=== PATIENT | female | born 1940 | race Caucasian/White ===

== ENCOUNTER → 2016-03-18 | Outpatient (CLI) | payer OTHER ==
[~2016-03-18] VITALS: Ht 154.9 cm; Wt 31.0 kg
[~2016-03-18] MED LIST: BUSPIRONE HCL10 MG PO; BUTRANS1 EAC1 TD; CENTRUM SILVER1 EAC4 PO; CLONAZEPAM 1 MG1 M1 PO; CYMBALTA30 MG PO; DICLOFENAC SODI75 MG PO; FAMOTIDINE 20 M20 MG PO; GENTLE LAXATIVE5 M1 PO; LEVOTHYROXIN0.088 MG PO; LEVOTHYROXINE0.05 MG PO; LINZESS145 MCG PO; LISINOPRIL20 MG PO; MECLIZINE HCL25 MG PO; MEGACE ES625 MG/5 M PO; METHADONE HCL5 MG PO; MIRALAX17 G1 PO; MOVANTIK12.5 MG PO; ONDANSETRON HCL4 M2; OXYCODONE-ACET1 EACH PO; PERCOCET 7.5-31 EACH PO; PRILOSEC20 MG PO; PROTONIX40 M2 PO; RELISTOR8 MG/0.4 M SQ; SENOKOT-S1 TA1 PO; TIZANIDINE HCL 22 M1 PO; TUMS PO; VOLTAREN GEL 1100 G2 TOP; ZIPSOR25 MG PO
--- NOTE | ~2016-03-18 | HPC ---
[facility] [address] [place] [address] PAIN MANAGEMENT CONSULTATION Name: TIERRASCARLET SJ Room #: REG Jose Velasco.#: [id number] Admission: 03/18/16 Attend Phys: Andres Otero MD Discharge: Date of : 39 Report #: [id number] THIS REPORT FOR: //name// CC: Laurent Garnica DATE OF SERVICE: 03/18/2016 Followup visit for chronic intractable pelvic pain. The patient returns to clinic today with her daughter. She continues to complain of pain in her pelvis and in her anterior thighs bilaterally. She has fracture deformities involving the pubic ramus on the left that are age undetermined. These x-rays were performed a year ago, but she still complains of pain in that location. She also complains today that she has some clicking trigger fingers in the right hand. This has made it more difficult for her to use her pen and to write and she complains of discomfort. 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 Pain is an 8/10 with her current medicines. She is tolerating her methadone reasonably well. Constipation has been an issue all long and we have used MiraLax ____ good effect. She is on other centrally acting medications, which contribute. She is chronically malnourished. There has been little change in her weight since her last visit. Her mental status is stable. She shows no signs of overmedication. She is chronically depressed. PHYSICAL EXAMINATION: VITAL SIGNS: Blood pressure 144/64, heart rate 55, BMI is 12.9. MUSCULOSKELETAL: Examination of the hands reveals minimal muscle mass throughout the interossei and dislocation of the proximal interphalangeal joints throughout the right hand. She is able to make a fist with that hand, there is no swelling or inflammation of the joints noted. Left hand reveals subluxation of the metacarpophalangeal joint of the thumb. She has tenderness along the pubic rami. Tenderness also along the quadriceps muscles bilaterally. She has very minimal muscle mass as would be expected by her BMI. IMPRESSION: 1. 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 [facility] [address] [place] [address] PAIN MANAGEMENT CONSULTATION Name: SCARLET MAYORGA SJ Room #: REG [facility]..#: [id number] Admission: 03/18/16 Attend Phys: Andres Otero MD Discharge: Date of : 39 Report #: [id number] 2. Chronic pelvic pain with distant pubic rami fractures, which remain tender. 3. Malnourished, debility. 4. 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 5. Management of high risk medication. RECOMMENDATIONS: 1. I do not think there is much we can do about her hands other than she can continue to try and use some of what I recommended that she use some silly putty to try and strengthen the interosseous muscles and muscles intrinsic in the hand to see if this will provide better functionality. 2. I have renewed her methadone at 5 mg t.i.d. under terms of our agreement with important instructions on safeguarding. 3. Follow up in the pain clinic in 3 months. 4. Encouraged nutrition again, but sure I am ____. <ELECTRONICALLY SIGNED> By: Andres Otero MD 04/18/16 1130 1624 0027 Andres Otero MD /nt
[2016-03-18 15:18] VITALS: BP 140/64
== END | disposition home or self-care (01) ==
LOC: PAIN 02-19 13:56
DX: M54.16 Radiculopathy, lumbar region (principal); G89.29 Other chronic pain; E46 Unspecified protein-calorie malnutrition; M12.842 Other specific arthropathies, not elsewhere classified, left hand; M12.841 Other specific arthropathies, not elsewhere classified, right hand; Z87.81 Personal history of (healed) traumatic fracture; Z87.891 Personal history of nicotine dependence

== ENCOUNTER → 2016-06-22 | Outpatient (CLI) | payer OTHER ==
[~2016-06-22] VITALS: Ht 154.9 cm; Wt 30.1 kg
[~2016-06-22] MED LIST changes: +GABAPENTIN100 MG PO; +OXYCODONE-APAP1 EAC6 PO
--- NOTE | ~2016-06-22 | HPC ---
[facility] [place] [address] [address] [place] [address] PAIN MANAGEMENT CONSULTATION Name: SCARLET MAYORGA SJ Room #: REG GHAZALA Velasco.#: [id number] Admission: 06/22/16 Attend Phys: Andres Otero MD Discharge: Date of : 39 Report #: [id number] THIS REPORT FOR: //name// CC: Laurent Garnica DATE OF SERVICE: 06/22/2016 DATE OF REGISTRATION: 06/22/2016 Followup visit for management of high risk medications and chronic intractable pelvic pain. The patient is here today with her daughter. She has had several fractures of her pelvis and I provided with medication which has been helpful. She is becoming tolerant to the effects of methadone. We had a long talk today about opioid rotation. I am going to take her down off methadone at her current dose of [address] her on 7.5 mg of oxycodone 3 times a day and add gabapentin. She has some radicular features into the top of her right leg. I do not have any recent x-rays of her spine. I do have x-rays; however, that demonstrates pubic rami fractures that are old. The patient is longstanding anorexic. I will say that in the years that I have known her, which is now stretching into 4 years, her body habitus has not changed much. Her BMI is 12.6. I am sure she eats like a bird and encouraged her in the past to eat more. Her daughter says she does take quite a bit of protein. PHYSICAL EXAMINATION: Very frail appearing 76-year-old female with a BMI of 12.6. Her blood pressure is 134/65, heart rate 65, respirations 16. Her affect is mildly depressed. She moves from sitting to standing position independently, walks with a slow gait. She has limited range of motion of the spine. No pain with the hip articulation with internal and external rotation. Straight leg raising reproduces mild anterior thigh pain which is worse on the right than left. IMPRESSION: 1. Chronic intractable back pain, now with some evidence of low radiculopathy. 2. Chronic malnourishment with debility. 3. Management of high risk medication. PLAN: 1. Discontinue methadone, begin oxycodone 7.[address] [address] PAIN MANAGEMENT CONSULTATION Name: TIERRASCARLET SJ Room #: REG [facility] Rod.#: [id number] Admission: 06/22/16 Attend Phys: Andres Otero MD Discharge: Date of : 39 Report #: [id number] 2. Trial of 100 mg gabapentin per day. Side effects discussed. 3. Follow up in 3 months. By: 1607 [id number] Andres Otero MD /nt
[2016-06-22 15:33] VITALS: BP 134/65
== END | disposition home or self-care (01) ==
LOC: PAIN 06-08 06:51
DX: G89.29 Other chronic pain (principal); R53.81 Other malaise; I10 Essential (primary) hypertension; E46 Unspecified protein-calorie malnutrition; Z87.891 Personal history of nicotine dependence

== ENCOUNTER → 2016-08-17 | Outpatient (CLI) | payer OTHER ==
--- NOTE | ~2016-08-17 | HPC ---
[facility] [address] [address] [address] PAIN MANAGEMENT CONSULTATION Name: SCARLET MAYORGA SJ Room #: REG [facility] Rod.#: [id number] Admission: 08/17/16 Attend Phys: Andres Otero MD Discharge: Date of : 39 Report #: [id number] THIS REPORT FOR: //name// CC: Laurent Cummings DO Andres Otero DATE OF SERVICE: 08/17/2016 DATE OF REGISTRATION: 08/17/2016. REASON FOR VISIT: Followup visit for chronic pain. SUBJECTIVE: The patient presents today with her daughter. She has fallen again and went to see emergency clinic. Apparently, they took x-ray and saw a pelvic fracture. I am uncertain whether this is a new fracture or her old one. The pain today is opposite side from her previous fracture, which was on the left. She is so frail and debilitated that any fall I would be afraid would shatter her like a porcelain tea cup. She weighs only 70 pounds and her BMI is less than 13. Despite this frailty, her mind is alert and oriented. She scores her pain as an 8/10. PHYSICAL EXAMINATION: VITAL SIGNS: Blood pressure 119/48, heart rate 64, respirations 16, weight is 70 pounds, BMI not listed, but I believe is around 12-13. This is chronic. MUSCULOSKELETAL: She has ability to move from a sitting to standing position and take a couple of steps with stabilization. She is a fall risk. She has minimal pain in her legs. ABDOMEN: She has tenderness in her abdomen due to constipation. HIP: She has localized pain overlying the right ischium. IMPRESSION: 1. Chronic intractable pain with history of pelvic fracture, possibly now with new fracture. 2. Malnourishment with debility. 3. Management of high risk medication. She has done well with the methadone currently at 15 mg a day. It is amazing that someone so small will be able to tolerate the medicine. Urine drug screens have been appropriate so she is taking the medicine. [facility] [address] [place] [address] PAIN MANAGEMENT CONSULTATION Name: SCARLET MAYORGA [facility] Room #: [facility] [id number] Admission: 08/17/16 Attend Phys: Andres Otero MD Discharge: Date of : 39 Report #: [id number] RECOMMENDATION: Follow up in the pain clinic in 1-3 months. Medications are provided. By: 1850 34 Andres Otero MD /nt
[2016-08-17 14:36] VITALS: BP 119/48
== END | disposition home or self-care (01) ==
LOC: PAIN 07-30 07:21
DX: S32.89XA Fracture of other parts of pelvis, initial encounter for closed fracture (principal); E46 Unspecified protein-calorie malnutrition; F11.20 Opioid dependence, uncomplicated; Z87.891 Personal history of nicotine dependence; X58.XXXA Exposure to other specified factors, initial encounter; Y93.89 Activity, other specified; Y92.89 Other specified places as the place of occurrence of the external cause; Y99.8 Other external cause status

== ENCOUNTER → 2016-11-16 | Outpatient (CLI) | payer OTHER ==
[~2016-11-16] VITALS: Ht 152.4 cm; Wt 30.5 kg
[~2016-11-16] MED LIST changes: +RABEPRAZOLE SOD20 MG PO
--- NOTE | ~2016-11-16 | HPC ---
[facility] [address] [address] [address] PAIN MANAGEMENT CONSULTATION Name: SCARLET MAYORGA SJ Room #: REG CLJose Velasco.#: [id number] Admission: 11/16/16 Attend Phys: Andres Otero MD Discharge: Date of : 39 Report #: [id number] THIS REPORT FOR: //name// CC: Laurent Cummings DO Andres Otero DATE OF SERVICE: 11/16/2016 REASON FOR VISIT: Followup visit for chronic pain. HISTORY OF PRESENT ILLNESS: A very frail patient returns to pain clinic today with her daughter. Her pain is 9. She describes several pain generators including her back and her thighs. She has hip throughout her pelvis where she has had pelvic insufficiency fractures. Pain is worse with standing and weightbearing and is also worse at night. She complains of a lot of stress and anxiety. It is generalized anxiety. She cannot really put her finger on it. She is on medication for this. Methadone has been helpful for her pain, but I am reluctant to increase her dose given her frailty and the polypharmacy that she is already taking. MEDICATIONS: Rabeprazole, methadone 5 mg t.i.d., meclizine, lisinopril, Relistor, Voltaren gel, levothyroxine, tizanidine, Cymbalta, ondansetron, clonazepam 1 mg 4 times daily for anxiety, famotidine and she was started on diclofenac sodium in addition to the naproxen that she takes. I have cautioned her about her nonsteroidal anti-inflammatory drug use and this may be of her abdominal pain. PHYSICAL EXAMINATION: GENERAL: She is very frail appearing. VITAL SIGNS: Blood pressure 122/50, heart rate 51, respirations 12 and oxygen saturation is 98. Her BMI is 13.1. This is consistent with previous visits dating back several years. She was 12.6 one year ago, so she is actually gained a bit of weight (!). MUSCULOSKELETAL: She has diffuse pain throughout the upper back, shoulders and arms with myofascial tenderness as well as joint pain. She has abdominal discomfort. She uses a walker and is able to ambulate but is at fall risk with standing and walking. Pain throughout the pelvis where she has insufficiency fractures, pain with internal and external rotation of the hips. IMPRESSION: 1. Chronic intractable pain, multiple pain generators including osteoarthritis, history of pelvic fractures. 2. Malnourishment with debility, chronic. [address] [address] PAIN MANAGEMENT CONSULTATION Name: SCARLET MAYORGA SJ Room #: REG CLI Jorge#: [id number] Admission: 11/16/16 Attend Phys: Andres Otero MD Discharge: Date of : 39 Report #: [id number] 3. Management of high risk medications. PLAN: I will renew her methadone for her. For her anxiety, I spent 10 minutes with her today discussing nonpharmacologic measures and instructing her in mindfulness meditation. I have also recommended Pablo Turner's book "10% happier." This is easy to read a thought of biography written about his use of mindfulness, meditation and I have given some instructions at the end of the book. Both, the patient and her daughter were familiar with Pablo Turner and the book and to look forward to reading this. I think it would be an excellent entry for her to this technique. A followup visit is scheduled in 3 months. By: 1733 [id number] Andres Otero MD /nt
[2016-11-16 14:46] VITALS: BP 122/50
== END | disposition home or self-care (01) ==
LOC: PAIN 07:28
DX: G89.29 Other chronic pain (principal); E46 Unspecified protein-calorie malnutrition; F41.8 Other specified anxiety disorders; Z98.890 Other specified postprocedural states; Z79.891 Long term (current) use of opiate analgesic; Z87.891 Personal history of nicotine dependence

== ENCOUNTER → 2017-05-24 | Outpatient (CLI) | payer OTHER ==
[~2017-05-24] VITALS: Ht 154.9 cm; Wt 32.8 kg
[~2017-05-24] MED LIST changes: +ASPIRIN81 M2 PO; +IRON325 PO; -LEVOTHYROXIN0.088 MG PO; +RELISTOR150 MG PO; +SYNTHROID50 MCG PO
--- NOTE | ~2017-05-24 | HPC ---
[facility] [address] [address] PAIN MANAGEMENT CONSULTATION Name: MILADY MAYORGA SJ Room #: REG Jose Velasco.#: [id number] Admission: 05/24/17 Attend Phys: Andres Otero MD Discharge: Date of : 39 Report #: [id number] THIS REPORT FOR: //name// CC: HU Otero DATE OF SERVICE: 05/24/2017 Milady returns to pain clinic today in followup. I am amazed to see that she has had a shoulder replacement. She has done exceptionally well and has healed very well. They examined her scar. She has significant improvement in her shoulder pain as a result of the surgery. Congratulations to do that for her rehabilitation [place] for the skilled encouraged to perform the surgery successfully. surgery. Overall, she continues to complain of pain; however, in her back and her thighs and hip and pelvis. The use of her arm has, however, improved her ability to provide for many of her simple hygiene tasks and activities of daily living. Her current daily dose of medication is methadone 5 mg 3 times a day and diclofenac leg. They would like to transition to oral medication. There are certainly risks there, but I would agreed to provide her with a prescription for 75 mg tablets once daily. She has used these before. No additional nonsteroidal anti-inflammatory drugs should be taken. PQRS: Review shows patient with significant osteoarthritis, previous shoulder replacement with Dr. Palacio. BMI is 13.7. PHYSICAL EXAMINATION: Blood pressure 113/77. She is a fall risk, has following the last 3 months and uses a walker. She is on no blood thinners. She has an opioid agreement, which was resigned in 10/21/2015 and is at low risk for addiction it. She understands the responsibilities. Her daughter is with her today. RECOMMENDATIONS: Drug testing has been performed periodically and we will continue to keep an eye on those medications for her. She is grateful for the pain relief provided by the methadone and this has helped her remain relatively independent despite her significant debility from malnourishment and low BMI. Follow up in 3 months. <ELECTRONICALLY SIGNED> By: Andres Otero MD 06/14/17 1408 1204 1422 Andres Otero MD /nt
[2017-05-24 14:29] VITALS: BP 113/77
== END ==
LOC: PAIN 02-22 07:15
DX: M19.011 Primary osteoarthritis, right shoulder (principal)

== ENCOUNTER → 2017-08-19 | Outpatient (CLI) | payer OTHER ==
[~2017-08-19] VITALS: Ht 154.9 cm; Wt 32.4 kg
[~2017-08-19] MED LIST changes: -RELISTOR150 MG PO
--- NOTE | ~2017-08-19 | HPC ---
[facility] [address] [address] [address] PAIN MANAGEMENT CONSULTATION Name: SCARLET MAYORGA SJ Room #: REG Jose Velasco.#: [id number] Admission: 08/19/17 Attend Phys: Andres Otero MD Discharge: Date of : 39 Report #: [id number] THIS REPORT FOR: //name// CC: Laurent Cummings DO Andres Otero DATE OF SERVICE: 08/19/2017 The patient returns to pain clinic today with her daughter. She continues to do remarkably well. She is on methadone 5 mg 3 times a day, tolerates it well. She uses Voltaren gel. She has new complaint today along the iliotibial band on the right leg, she has local tenderness. She has no pain with straight leg raising, it does not appear to be radicular in nature. She has no pain over the greater trochanter, no pain with internal and external rotation of the hip. Osteoarthritic shoulder, previously replaced by Dr. Palacio is doing well on the right. She is considering it on the left now! PQRS review shows a nonsmoking, nonalcohol consuming 77-year-old, on opioids for treatment of chronic pain under terms of an opioid agreement, which has been signed. She is at low risk for addiction. Her functional assessment tool shows 57/70. Pain intensity 8/9. She is a fall risk and need some help with walking. Blood pressure 127/66, heart rate 73, respirations are 12. She has tenderness bilaterally in the shoulders due to osteoarthritis. IMPRESSION: 1. Chronic pain with multiple pain generators from osteoarthritis. She has some soft tissue pain along the iliotibial band on the right as well as the tensor fascia laurie. Etiology (?). 2. Chronic malnourishment with debility. 3. Osteoarthritis. 4. Management of high-risk medications. PLAN: I renewed medication with providing instructions to her daughter. Safeguarding the medications is mandatory. Follow up with the pain clinic in 3 months. By: 1750 [id number] Andres Otero MD /nt
[2017-08-19 15:14] VITALS: BP 127/66
== END ==
LOC: PAIN 08-09 07:02
DX: M19.011 Primary osteoarthritis, right shoulder (principal); G89.29 Other chronic pain; E46 Unspecified protein-calorie malnutrition; Z79.899 Other long term (current) drug therapy

== ENCOUNTER → 2017-12-08 | Outpatient (CLI) | payer OTHER ==
[~2017-12-08] VITALS: Ht 154.9 cm; Wt 30.4 kg
[~2017-12-08] MED LIST changes: +RELISTOR150 MG PO
--- NOTE | ~2017-12-08 | HPC ---
[facility] [address] [address] PAIN MANAGEMENT CONSULTATION Name: TIERRASCARLET SJ Room #: REG GHAZALA Patel#: [id number] Admission: 12/08/17 Attend Phys: Patricia Morales MD Discharge: Date of : 39 Report #: [id number] THIS REPORT FOR: //name// CC: Laurent Jimenez DATE OF SERVICE: 12/08/2017 PRIMARY CARE PHYSICIAN: Laurent Cummings DO CHIEF COMPLAINT: Just had shoulder replacement surgery on the left side on 11/23/2017. FOLLOWUP HISTORY: The patient is a 77-year-old female who has been followed in the pain clinic by Dr. Andres Otero. The patient is on a complex medical regimen where she receives methadone to help control her pain. States that her pain is 6-7 today. It averages as a 7 on most occasions. She has a history of left shoulder replacement in the past as well. She has been having chronic pain since 2011. Pain at this juncture is described as throbbing and can be quite problematic at night. Pain is worse and exacerbated when she is sitting, when she feels stressed as well as when anxiety is present. Finds that her medications are helpful. She does use heat in the affected areas. She has returned today for renewal of her medication. The patient also has complaints of some pain and discomfort along the lateral portion of her left and right leg. ALLERGIES: No known drug allergies. MEDICATIONS: Relistor 150 mg p.r.n. constipation, methadone 5 mg 1 p.o. t.i.d., Voltaren gel 2 g q.i.d. to upper extremities, aspirin 81 mg, meclizine 25 mg dizziness, lisinopril 20 mg daily, multivitamin, Centrum Silver, calcium 500 mg, Synthroid 0.5 mg, tizanidine 2 mg p.r.n., Zofran 4 mg for nausea, clonazepam 1 mg p.r.n. anxiety, famotidine 20 mg, Voltaren 75 mg PAIN CLINIC ASSESSMENT AND PQRS: 1. History of osteoarthritis. The patient has osteoarthritic changes in her left as well as her right shoulder. 2. Rheumatoid arthritis. The patient is not being treated for rheumatoid arthritis. 3. Height 5 feet 1 inch, weight 67 pounds, BMI is 12.7. 4. Vital signs: Blood pressure 119/62, pulse 72, respiratory rate 16, room air saturation is 100%. 5. Pain intensity 7/7 on average, 6-7 today. 6. Fall risk. The patient has not fallen in the last 3 months. She does have some problems with vertigo and receives assistance with walking at home/rehabilitation facility. The patient is in [place] [address] PAIN MANAGEMENT CONSULTATION Name: BANDARYAASCARLET Room #: REG CLI Andre#: [id number] Admission: 12/08/17 Attend Phys: Patricia Morales MD Discharge: Date of : 39 Report #: [id number] visit. 7. Blood thinner. The patient is not on a blood thinning medication. 8. Hypertension. The patient is being treated for hypertension. 9. Opioid therapy greater than 6 weeks. The patient receives her medications from one source, the pain clinic. 10. Risk assessment tool: 3, low for use of opioid medications. 11. Functional assessment tool: 57. Moderate amount of pain and discomfort associated with activities of daily living. 12. Recreational drug use. The patient denies use of recreational drugs. 13. Tobacco: The patient has a 15-cafo-nzne history of smoking. 14. Alcohol: The patient denies use of alcohol at this juncture. PHYSICAL EXAMINATION: GENERAL: The patient is a well-developed, white female, appeared extremely thin and cachectic. She does look weak. She is alert and oriented x 3. NECK: Without adenopathy or JVD. LUNGS: Distant lung sounds. HEART: Regular rate. ABDOMEN: Scaphoid. Bowel sounds present. EXTREMITIES: Upper extremity, the patient complains of pain and discomfort in the right arm. She has some pain in her left leg. IMPRESSION: 1. Chronic pain with multiple pain generators from osteoarthritis. 2. Soft tissue pain along the iliotibial band on the right as well as tensor fascia laurie. 3. Chronic malnutrition with debility. 4. Osteoarthritis. 5. Management of high risk medications. RECOMMENDATIONS: We discussed treatment options with the patient. At this juncture, we will continue with her medications. She is aware that opioid medications can be helpful. One can develop a dependence. Pain medications and the opioid can become less effective over time as a result of tolerance. Overall, she feels that her medications are working reasonably well. She would like to continue with her medications. She has had no complications. Keeps her medication in a guarded area. We would like to thank you for letting us participate in her care. We hope she continues to improve. <ELECTRONICALLY SIGNED> By: Patricia Morales MD 12/20/17 1124 [id number] [id number] Patricia Morales MD /PMT
[2017-12-08 11:12] VITALS: BP 119/67; BP 99/50
== END ==
LOC: PAIN 11-15 08:28
DX: M79.604 Pain in right leg (principal); M79.601 Pain in right arm; I10 Essential (primary) hypertension; Z79.899 Other long term (current) drug therapy; Z79.891 Long term (current) use of opiate analgesic

== ENCOUNTER → 2018-03-28 | Outpatient (CLI) | payer OTHER ==
[~2018-03-28] VITALS: Ht 154.9 cm; Wt 28.6 kg
--- NOTE | ~2018-03-28 | HPC ---
[facility] [address] [place] [address] PAIN MANAGEMENT CONSULTATION Name: SCARLET MAYORGA SJ Room #: REG CLJose Velasco.#: [id number] Admission: 03/28/18 Attend Phys: Andres Otero MD Discharge: Date of : 38 Report #: [id number] THIS REPORT FOR: //name// CC: HU Otero DATE OF SERVICE: 03/28/2018 The patient returns to the Pain [facility] today with her daughter. She has bundled up against the cold. She certainly needs it. She weighs 63 pounds. She is nothing, but skin and bones. She is delightful, communicative and we discussed her upbringing in [place] when she graduated from [employer] in 1956. She is living independently, able to care for herself and provide for all of self daily cares. She believes that the medication that we provide her plays a big role in allowing her to be active and functional in that care. She has been on methadone under terms of written opioid agreement for a number of years. We have tried a number of other medications before resorting to methadone and her current daily dose has been roughly 15 mg over the course of the last 4 years. We have tried to taper her in the past with limited success. Our goal is essentially palliative and due to this case, it is critical that she safeguards her medication, which she has done. She has shown no intolerance to the medication. We have checked her electrocardiogram in the past with no evidence of prolonged PQ interval. I have now met both of her daughters. I have not yet met her son, Jad. Yamile, her daughter usually comes, but is not here today. Today, it is her second daughter. We discussed her mother's activities at home. She is a fall risk with some vertigo and has had a few falls. We have discussed caution in transferring and walking in the house with the important cueing and strategies that she learned while in rehab following her shoulder replacements. She scores her pain as a 10/10 today despite her medication, but this is not an atypical for her. The pain score, I think not truly indicative of her benefits. She has diffuse osteoarthritis. She has had both shoulders replaced. This has been helpful in reducing at least that component of her pain. Most of her pain is in the spondylitic changes throughout her lumbar spine. She is on an opioid agreement signed many years ago, resigned most recently in 2015. She has completed an opioid risk tool and is considered at low risk for addiction with a score of 3. Functional assessment tool shows a score of 57/70 indicating that she is quite limited in her activities of daily living as a [address] [id number] PAIN MANAGEMENT CONSULTATION Name: BANDARYAASCARLET SJ Room #: REG GHAZALA Patel#: [id number] Admission: 03/28/18 Attend Phys: Andres Otero MD Discharge: Date of : 38 Report #: [id number] result of her chronic daily pain. She does not smoke nor use alcohol. PHYSICAL EXAMINATION: She is 5 feet, 163 pounds for a BMI of 11.9. This is a steady decline for her. I looked back to 12/2014, roughly 3 years ago and at that time, her BMI was 13.4 and she weighed 73 pounds. We have discussed dietary supplement with proteins on many occasions. Her blood pressure is 134/70, heart rate 68, respirations 12. As mentioned, she is literally skin and bone. She can palpate every bone in her body. She has tenderness across her low back. The scars have healed nicely from her shoulder surgeries. She has good range of motion for the prostheses. IMPRESSION: 1. Chronic intractable pain with multiple pain generators including osteoarthritis and chronic low back pain with spondylosis. 2. Chronic malnutrition with debility. 3. Management of high risk medications under terms of written opioid agreement. The patient says that Dr. Cummings would like her to go off of methadone. I have given the patient my card with my cell phone number and Dr. Cummings and I can discuss strategies. I am open to any suggestions that he has to provide better palliative care for the patient. By: [id number] Andres Otero MD /nt
[2018-03-28 14:38] VITALS: BP 134/70
--- NOTE | 2018-03-28 14:53 | NUR ---
Pain Clinic Assessment: 1. History of Osteoarthritis: right shoulder History of Rheumatoid Arthritis: N/A 2. Height: 5 ft. 1 in. 154.9 cm. Weight: 63.0 lb. oz. 28.576 kg. Patient's BMI: 11.9 3. Vital Signs: BP: 134/70 Pulse: 68 Resp: 12 Temp: 02 Sat: ECG Mon: 4. Pain Intensity: 10 TODAY 5. Fall Risk: Dizziness: Y Needs help standing or walking: Y Fallen in the last 3 months: N Fall risk comments: HAS HAD SOME VERTIGO, AND A FEW FALLS, HAS ASSISTANCE WITH WALKING AT HOME/REHAB FACILITY, PT IN A W/C TODAY AT VISIT 6. Patient on Blood Thinner: None 7. History of Hypertension: Y 8. Opioid Therapy greater than 6 weeks: Y Opiate Contract Signed: 10/21/15 9. Risk Assessment Tool Provided: 3-LOW RISK 10. Functional Assessment Tool: 57/ 11. Recreational Drug Use: Never Drug Type: Tobacco Use: Former Smoker Tobacco Type: Amount or Packs/day: How Many Years: Alcohol Use: No Frequency: Quant:
== END ==
LOC: PAIN 07:19
DX: M47.816 Spondylosis without myelopathy or radiculopathy, lumbar region (principal); G89.4 Chronic pain syndrome; M19.90 Unspecified osteoarthritis, unspecified site; R53.81 Other malaise; E46 Unspecified protein-calorie malnutrition; Z68.1 Body mass index [BMI] 19.9 or less, adult; Z96.612 Presence of left artificial shoulder joint; Z96.611 Presence of right artificial shoulder joint; Z79.899 Other long term (current) drug therapy